=== PATIENT | male | born 1950 | race Caucasian/White ===

== ENCOUNTER 2020-05-08 10:11 | Day surgery (SDC) | payer MEDICAID, SELFPAY ==
[2020-05-08 11:01] VITALS: BP 139/76; PULSE 68; RESP 16; TEMP 36.1; O2SAT 100
[2020-05-08] MEDS: Tropicam./Phenyleph. (1/2.5%) 5 ML BTL OS ×3 (11:19→11:38)
[2020-05-08] MEDS: Lactated Ringers 1,000 ML 80 ML IV (11:37)
[2020-05-08] MEDS: Trypan Blue 0.06% 0.5 ML SYR (14:05)
[2020-05-08] MEDS: Tetracaine 0.5% 4 ML BTL OS (14:08)
[2020-05-08] MEDS: Balanced Salt Soln.-PLUS 500 ML BAG (14:09)
[2020-05-08] MEDS: Lidocaine 1% Pres-Free 5 ML VIAL (14:11)
[2020-05-08] MEDS: Lidocaine 2% Jelly 6 ML SYR (14:12)
[2020-05-08] MEDS: Povidone-Iodine Ophth 30 ML BTL (14:16)
--- NOTE | 2020-05-08 14:18 | W.PM.DSUDISC ---
Discharge Plan Disposition Patient Disposition: HOME Condition: Good Discharge Details Attending Provider: Fritz Moran Primary Care Provider: Chucky Black Home Meds and New Rx's Prescriptions: No Action furosemide 40 mg Tablet 40 mg PO DAILY RF: 0 latanoprost 0.005 % Drops 1 drp ophthalmic (eye) HS RF: 0 acetaminophen 325 mg Tablet 325 mg PO QID PRNRF: 0 divalproex 250 mg Tablet,Delayed Release (Dr/Ec) 250 mg PO DAILY RF: 0 clonazepam 0.5 mg Tablet 0.5 mg PO QID RF: 0 sertraline 100 mg Tablet 100 mg PO DAILY RF: 0 divalproex 500 mg Tablet,Delayed Release (Dr/Ec) 500 mg PO BID RF: 0 risperidone 3 mg Tablet 3 mg PO BID RF: 0 tamsulosin 0.4 mg Capsule 0.4 mg PO DAILY RF: 0 potassium citrate 10 mEq (1,080 mg) Tablet Extended Release 10 meq PO DAILY RF: 0 hydrocortisone 2.5 % Cream 1 applic TOPICAL BID RF: 0 topiramate 200 mg Tablet 200 mg PO HS RF: 0 metoprolol succinate 25 mg Tablet Extended Release 24 Hr 25 mg PO DAILY RF: 0 quetiapine 400 mg Tablet Extended Release 24 Hr 800 mg PO DAILY RF: 0 Centrum 18-400 mg-mcg Tablet 1 tab PO DAILY RF: 0 Blink Tears 0.25 % Drops 1 drp OPHTHALMIC (EYE) BID RF: 0 Discharge Instructions Stand Alone Forms: Post-op Topical Cataract, Fior Ganey (DSU) Discharge Orders Discharge Orders: Discharge Order (Routine); Ordered 05/08/20 Ordered By: Fritz Moran DS: Diagnosis Discharge Diagnosis (1) Nuclear sclerotic cataract of left eye: Status: Resolved (2) Cortical cataract of left eye: Status: Resolved
--- NOTE | 2020-05-08 14:20 | ROE_ITS ---
Date of service: 05/08/20 Time of Service: 14:20 Operative Note Operative Note DATE OF PROCEDURE: 05/08/20 PRE-OP DIAGNOSIS: Nuclear/cortical/posterior subcapsular cataract, left eye Poor red reflex, left eye secondary to cataract POST-OP DIAGNOSIS: same PROCEDURE: Cataract extraction using phacoemulsification with intraocular lens implant, left eye, using capsular staining with Vision Blue SURGEON: Fritz Moran ANESTHESIA: MAC (with local sub-tenon's anesthetic injection) COMPLICATIONS: None Patient was transported to: same day Patient's condition: stable Implants: [employer] / [employer] Tecnis [id number] Indications: Progressive decreased vision due to cataract, left eye, with poor red reflex Procedure Description: CATARACT SURGERY OPERATIVE REPORT PREOPERATIVE DIAGNOSIS: 1. Dense nuclear/cortical/posterior subcapsular cataract, left eye 2. Poor red reflex secondary to #1 POSTOPERATIVE DIAGNOSIS: Same OPERATION: 1. Cataract extraction using phacoemulsification with posterior chamber intraocular lens implant, left eye. 2. 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 He has developed a significant nuclear cortical and posterior subcapsular cataract in the left eye with best corrected vision of 20/200. The option of cataract surgery was offered to the patient and he wished to proceed. He has significant kyphoscoliosis with severe difficulty in positioning. Surgery is performed under general/LMA anesthesia in order to properly positioned Ms. monocular patient and keep him comfortable for the duration of surgery. PROCEDURE: The correct surgical eye was identified and marked as the left eye and the pupil was dilated in the preoperative area using mydriatics and cycloplegics. The dilated pupil size was 7.0 mm. Oral sedation was administered in the form of an Imprimis MKO Melt (midazolam 3mg/ketamine 25mg/ondansetron 2mg). The patient was brought to the operating room where cardiopulmonary monitoring was instituted and surgical time-out was performed, confirming the correct operative eye and IOL power. General/LMA anesthesia was then administered. Topical anesthesia was administered and ophthalmic povidone-iodine 5% was instilled into the conjunctival fornices. Lidocaine gel was applied to the cornea and the dakota-ocular area was prepped with Betadine 10% solution and draped in the usual sterile fashion for intraocular surgery, including an aperture drape. A Tegaderm transparent film dressing was cut in half and used to cover the lashes and lid margins. Care was taken to sequester the lashes and lid margins under the Tegaderm dressing. A lid speculum was placed between the lids of the operative eye and the Flori-Misha operating microscope was maneuvered into position. Altagracia scissors were then used to make a conjunctival buttonhole approximately 6mm posterior to the limbus in the inferonasal quadrant. Blunt dissection was carried out to expose bare sclera, and a blunt-tipped sub-tenon?s anesthesia cannula was introduced and passed posteriorly along the globe where 1cc of non- preserved plain lidocaine was injected into posterior sub-Tenon?s space. A sideport knife was used to make a paracentesis port superiorly/superiortemporally. Intraocular phenylephrine/lidocaine was injected int the anterior chamber.. Air was then injected into the anterior chamber, followed by Vision Blue, which was painted over the anterior capsule and then irrigated out using BSS. The anterior chamber was filled with Healon Pro. A 2.4mm keratome knife was used to create a half-thickness groove at the limbus and then to construct a three-plane near-clear corneal tunnel extending 2.0mm into clear cornea at the 3:00 position. A flap was raised on the anterior capsule and capsulorhexis forceps were used to complete a continuous curvilinear capsulorhexis of 5.0 mm. The anterior chamber was noted to be very deep with moderate to severe zonular laxity and thin capsule. Balanced salt solution was then used to perform cortical cleaving hydrodissection and nuclear hydrodelineation until the lens could be freely rotated within the capsular bag. The lens nucleus was then disassembled and removed within the capsular bag and iris plane using phacoemulsification. Nuclear splitters were used to aid in dividing the lens nucleus into to have to reduce stress on the capsule and zonules. Residual cortical material was removed using the 45-degree angled silicone I/A tip with 0.3mm port. The posterior capsule was carefully polished to remove as much residual lens epithelial cells as safely possible. There was some residual posterior subcapsular plaque which could not be safely removed. The capsular bag was then inflated and the anterior chamber deepened with viscoelastic. The lens implant described above was inserted into the capsular bag using the Tradyo [place] Injector. A Kuglen hook was used to dial the IOL into position. Residual viscoelastic was then removed first from posterior to the IOL, then from the anterior chamber using the I/A handpiece. The lens implant was noted to center nicely within the capsular bag. The incisions were stromally hydrated, and the anterior chamber was reformed using BSS. Miostat was injected into the anterior chamber at the iris margin. Then 0.1cc of moxifloxacin 5.0mg/ml were injected into the capsular bag and anterior chamber. The incisions were checked with a Weck spear and found to be secure. Several drops of ophthalmic povidone- iodine 5% were then applied to the eye followed by two drops of Imprimis combination prednisolone/moxifloxacin/nepafenac solution. The drapes were removed and a clear plastic protective eye shield was placed over the eye. The patient was then returned to PACU in stable condition.
[2020-05-08 14:40] VITALS: BP 173/55; PULSE 60; RESP 13; TEMP 36.6; O2SAT 99
[2020-05-08 14:45] VITALS: BP 170/64; PULSE 61; RESP 14; TEMP 36.6; O2SAT 99
[2020-05-08 14:50] VITALS: BP 175/64; PULSE 61; RESP 14; TEMP 36.6; O2SAT 100
[2020-05-08 14:55] VITALS: BP 170/66; PULSE 59; RESP 14; TEMP 36.6; O2SAT 99
[2020-05-08 15:40] VITALS: BP 139/70; PULSE 65; RESP 18; TEMP 36.3; O2SAT 99
== END 2020-05-08 15:55 | disposition home or self-care (01) ==
PROVIDERS: PCP Family Medicine; Visit Provider Ophthalmology
PROC: (CPT 66982; principal; 2020-05-08 12:00)
DX: H25.12 Age-related nuclear cataract, left eye (principal); H25.012 Cortical age-related cataract, left eye; H25.042 Posterior subcapsular polar age-related cataract, left eye; H35.89 Other specified retinal disorders; M41.9 Scoliosis, unspecified
CPT/HCPCS: 66982; V2632